=== PATIENT | male | born 1960 | race Caucasian/White ===

== ENCOUNTER → 2017-04-24 | Outpatient (CLI) | payer BC ==
[~2017-04-24] MED LIST: AMLO-99 PO; ASPI-1471 PO; ATOR-1 PO; ATOR40TA24 PO; ATOR40TA69 PO; BENA40TA52 PO; CLIN300C99 PO; ESOM40CA42 PO; EXEN2PEN SUBQ; FLU60SYR30 IM ONLY; HYDR-2966 PO; INSU500V2 SQ; METF-420 PO; MULT-1378 PO; NAPR220C12 PO; NOVOLINRPT IJ; NOVOLINRPT SUBQ; OMEP40CA48 PO; OXYC-865 PO; PNEI IJ; SYRI-1525 MC; TEST5GEL7; TOBR5DRO55 OP; VARE1TAB3 PO; VARE1TAB4 PO; esomeprazole PO
== END ==
LOC: RESP 19:43
PROVIDERS: ATTEND Emergency Medicine
DX: G47.33 Obstructive sleep apnea (adult) (pediatric) (principal); G47.61 Periodic limb movement disorder; G47.52 REM sleep behavior disorder